=== PATIENT | male | born 1980 ===

== ENCOUNTER 2018-09-14 09:43 | Emergency (ER) | payer BC ==
[2018-09-14 10:24] VITALS: O2SAT 100
--- NOTE | 2018-09-14 10:40 | C.PDOC ---
History Of Present Illness 37 years old male with no known PMHx presents to ED for complaints of intermittent upper abdominal pain. Pain described as radiating to back, "comes and goes", and worsens after eating. Patient reports last bowel movement was normal today. Denies fever, chills, nausea, vomiting, diarrhea, or alcohol use for the last year. Patient also reports he was seen at urgent care 2 days ago and was administered Simethicone with no relief which prompted the ED visit today. Time Seen by Provider: 09/14/18 10:01 Chief Complaint (Nursing): Abdominal Pain History Per: Patient History/Exam Limitations: no limitations Onset/Duration Of Symptoms: Days (2), Intermittent Episodes Current Symptoms Are (Timing): Still Present Location Of Pain/Discomfort: RUQ, RLQ Radiation Of Pain To:: Back Associated Symptoms: denies: Fever, Chills, Nausea, Vomiting, Diarrhea Exacerbating Factors: None Alleviating Factors: None Last Bowel Movement: Today Recent travel outside of the [place]: No Past Medical History Reviewed: Historical Data, Nursing Documentation, Vital Signs Vital Signs: Last Vital Signs Temp 97.8 F 09/14/18 09:48 Pulse 87 09/14/18 09:48 Resp 18 09/14/18 09:48 BP 148/96 H 09/14/18 09:48 Pulse Ox 100 09/14/18 09:48 - Medical History PMH: No Chronic Diseases Surgical History: No Surg Hx Family History: States: No Known Family Hx - Social History Hx Alcohol Use: Yes Hx Substance Use: No - Immunization History Hx Tetanus Toxoid Vaccination: No Hx Influenza Vaccination: No Hx Pneumococcal Vaccination: No Review Of Systems Constitutional: Negative for: Fever, Chills Gastrointestinal: Positive for: Abdominal Pain (Upper abdominal pain ). Negative for: Nausea, Vomiting, Diarrhea Skin: Negative for: Rash Neurological: Negative for: Weakness, Numbness Physical Exam - Physical Exam Appears: Well, Non-toxic, No Acute Distress Skin: Normal Color, Warm, Dry, No Rash Head: Atraumatic, Normacephalic Eye(s): bilateral: Normal Inspection, PERRL, EOMI Oral Mucosa: Moist Neck: Normal ROM, Supple Chest: Symmetrical, No Tenderness Cardiovascular: Rhythm Regular, No Murmur Respiratory: Normal Breath Sounds, No Decreased Breath Sounds, No Rales, No Rhonchi, No Wheezing Gastrointestinal/Abdominal: Bowel Sounds (Active ), Soft, Tenderness (Minimal upper left quadrant ), No Distention, No Guarding, No Rebound Back: Normal Inspection, No CVA Tenderness Extremity: Bilateral: Atraumatic, Normal Color And Temperature, Normal ROM Pulses: Left Radial: Normal, Right Radial: Normal Neurological/Psych: Oriented x3, Normal Speech Gait: Steady ED Course And Treatment - Laboratory Results Result Diagrams: 09/14/18 10:50 09/14/18 10:50 O2 Sat by Pulse Oximetry: 100 (RA) Pulse Ox Interpretation: Normal Medical Decision Making Medical Decision Making: Plan: * Pepcid * Blood work * Urinalysis 1209 pt feeling much better. abdomen soft, nd. nt. pt to be discharged with pepcid, bland diet, adivsed to f/u pmd and with gi. Disposition Counseled Patient/Family Regarding: Studies Performed, Diagnosis, Need For Followup, Rx Given - Disposition Referrals: Tono Hannon MD [Staff Provider] - Disposition: HOME/ ROUTINE Disposition Time: 12:11 Condition: IMPROVED Additional Instructions: Por favor, seth Pepcid taj prescrita. Shad un seguimiento en la prxima semana con bobby mdico de atencin primaria y con el Dr. Hannon, gastroenterlogo. Siga la dieta inspida / gastritis. Regrese a la vinicio de emergencias para el dolor, vmitos, fiebre u otras inquietudes. Pleae take Pepcid as prescrbied. Follow up in the next week with your primary care doctor and with Dr Hannon, net trainer. Follow bland/gastritis diet. Return to ER for worse pain, vomiting, fever or other concerns. Prescriptions: Famotidine [Pepcid] 20 mg PO DAILY #14 tab Instructions: Gastritis (DC), Ulcer and Gastritis Diet Forms: Gen Discharge Inst Mauritanian, [email or web address] [facility] (Mauritanian) - Clinical Impression Clinical Impression: Gastritis - PA / [employer] / Resident Statement MD/DO has reviewed & agrees with the documentation as recorded. - Scribe Statement The provider has reviewed the documentation as recorded by the Scribe Jesus Manuel Suarez All medical record entries made by the Scribe were at my direction and pe rsonally dictated by me. I have reviewed the chart and agree that the record accurately reflects my personal performance of the history, physical exam, medical decision making, and the department course for this patient. I have also personally directed, reviewed, and agree with the discharge instructions and disposition.
[2018-09-14 11:01] LABS: BASO # 0.1 K/uL (0.0-0.2); BASO % 1.2 % (0.0-2.0); EOS # 0.4 K/uL (0.0-0.7); HEMOGLOBIN 16.7 g/dL (12.0-18.0); LYMPH # 2.7 K/uL (1.0-4.3); LYMPH % 42.1 % (20.0-40.0); MEAN CELL VOLUME 85.2 fL (80.0-94.0); MEAN CORPUSCULAR HEMOGLOBIN 28.2 pg (27.0-31.0); MEAN CORPUSCULAR HGB CONC 33.2 g/dL (33.0-37.0); MEAN PLATELET VOLUME 8.2 fL (7.2-11.7); MONO # 0.9 K/uL (0.0-0.8); MONO % 13.9 % (0.0-10.0); NEUT # 2.3 K/uL (1.8-7.0); NEUT % 35.8 % (50.0-75.0); RBC 5.92 Mil/uL (4.40-5.90); WHITE BLOOD COUNT 6.4 K/uL (4.8-10.8)
[2018-09-14 11:14] LABS: ALB/GLOB RATIO 1.4 (1.0-2.1); ALBUMIN 4.6 g/dL (3.5-5.0); ALT/SGPT 24 U/L (21-72); AMYLASE 85 U/L (30-110); AST/SGOT 21 U/L (17-59); BLOOD UREA NITROGEN 13 mg/dL (9-20); CALCIUM 9.6 mg/dl (8.6-10.4); GFR NON-AFRICAN AMERICAN > 60; LIPASE 60 U/L (23-300)
[2018-09-14 11:23] LABS: URINE BILIRUBIN NEGATIVE (NEGATIVE); URINE BLOOD 1+ (NEGATIVE); URINE CLARITY Clear (Clear); URINE COLOR Yellow (YELLOW); URINE GLUCOSE (UA) NORMAL (Normal); URINE LEUKOCYTE ESTERASE NEG Leu/uL (Negative); URINE PROTEIN NEGATIVE (NEGATIVE); URINE UROBILINOGEN NORMAL mg/dL (0.2-1.0)
[2018-09-14 12:27] VITALS: BP 135/89; PULSE 80; RESP 17; TEMP 97.9
== END 2018-09-14 12:26 | disposition home or self-care (01) ==
LOC: C.ER 09:43
DX: K29.70 Gastritis, unspecified, without bleeding (principal)